=== PATIENT | female | born 1975 | race American Indian/Alaskan Native ===

== ENCOUNTER 2016-09-23 08:49 | Emergency (ER) | payer SELFPAY ==
[2016-09-23] MEDS ORDERED: D5NS 0.2% 1,000 ML IV ONE (08:57)
[2016-09-23 09:35] LABS: Basophils % (Auto) 0.7 % (0.0-1.8); Eosinophils % (Auto) 3.1 % (0.0-4.3); Hematocrit 32.2 % (30.3-42.9); Hemoglobin 10.6 gm/dl (10.1-14.3); Mean Corpuscular HGB Conc 33 % (30-34); Mean Corpuscular Hemoglobin 31 pg (28-32); Mean Corpuscular Volume 93 fl (79-97); Platelet Count 229 K/mm3 (140-440); Red Blood Count 3.45 M/mm3 (3.65-5.03); Red Cell Distribution Width 15.5 % (13.2-15.2); Reticulocyte % 1.34 % (0.78-2.58); White Blood Count 4.5 K/mm3 (4.5-11.0)
[2016-09-23 09:49] LABS: Anion Gap 18 mmol/L; BUN/Creatinine Ratio 8.88; Blood Urea Nitrogen 8 mg/dL (7-17); Calcium 8.5 mg/dL (8.4-10.2); Carbon Dioxide 22 mmol/L (22-30); Chloride 103.3 mmol/L (98-107); Glucose 101 mg/dL (65-100); Potassium 3.7 mmol/L (3.6-5.0); Sodium 140 mmol/L (137-145)
--- NOTE | 2016-09-23 12:34 | Emergency Department Report ---
ED General Adult HPI - General Chief complaint: Chest Pain Stated complaint: SICKLE CELL PAIN/CHEST PAIN/VOMITING/DIZZINESS Time Seen by Provider: 09/23/16 12:28 Source: patient Mode of arrival: Ambulatory Limitations: No Limitations - History of Present Illness Initial comments: The patient presents with symptoms that appear to be totally similar to her presentation here in October when she was admitted to this facility for workup. She describes chest pain which is mostly right sided under her right breast and somewhat radiating around to her back. She had similar symptoms before. She had a negative VQ scan and negative stress thallium. The patient herself states that these symptoms which she is presenting with today are the same as her previous admission. However she thinks that was in 2014. In any case he is not coughing her pain is not pleuritic. She has no shortness of breath. She states that she is taking Coumadin due to pulmonary embolism related to a previous port that has been subsequently removed. She claims that she had an INR last week which was 2.7. She claims that she is compliant with her Coumadin every day. Apparently this history is in accurate. Her INR today is 1.05. In any case in addition to her right-sided chest pain she complains of diffuse pain which she states his similar to her sickle cell pain. She states that she sees a pan dumper at [facility]. She denies leg swelling, calf pain, recent travel and control pills. She's had no recent fever or chills. -: days(s) Location: chest, upper extremity, lower extremity Radiation: non-radiation Quality: aching Consistency: intermittent Improves with: none Worsens with: none Associated Symptoms: denies other symptoms Treatments Prior to Arrival: none - Related Data Home Medications Medication Instructions Recorded Confirmed Last Taken Capecitabine [Xeloda] 500 mg PO BID 11/23/15 09/23/16 Unknown Previous Rx's Medication Instructions Recorded Last Taken Type Ferrous Sulfate [Feosol 325 MG tab] 325 mg PO QDAY #30 tablet 01/18/14 08/25/15 Rx Folic Acid [Folvite] 1 mg PO QDAY #30 tablet 06/19/14 08/25/15 Rx Hydroxyurea [Droxia] 300 mg PO QDAY #30 capsule 06/19/14 08/25/15 Rx Warfarin [Coumadin] 10 mg PO QDAY #30 tablet 06/11/15 08/25/15 Rx levETIRAcetam [Keppra TAB] 1,000 mg PO QDAY 30 Days 06/11/15 08/25/15 Rx Ondansetron [Zofran ODT TAB] 8 mg PO Q8HR PRN #20 tab.rapdis 07/14/15 08/25/15 Rx Enoxaparin [Lovenox] 100 mg SQ Q12HR #14 syringe 11/24/15 Unknown Rx Oxycodone HCl/Acetaminophen 1 each PO Q6HR PRN #12 tablet 11/24/15 Unknown Rx [Percocet 10/325 mg] Promethazine [Phenergan TAB] 25 mg PO Q6HR PRN #20 tab 11/24/15 Unknown Rx Ondansetron [Zofran Odt] 4 mg PO Q6H PRN #7 tab.rapdis 09/23/16 Unknown Rx oxyCODONE /ACETAMINOPHEN [Percocet 1 tab PO Q6HR PRN #10 tablet 09/23/16 Unknown Rx 5/325] Allergies Allergy/AdvReac Type Severity Reaction Status Date / Time aspirin Allergy Rash Verified 03/07/15 09:01 ketorolac tromethamine Allergy Rash Verified 03/07/15 09:01 [From Toradol] morphine Allergy Unknown Verified 03/07/15 09:01 prochlorperazine edisylate Allergy Rash Verified 03/07/15 09:01 [From Compazine] metoclopramide HCl AdvReac AGITATION Verified 03/07/15 09:01 [From Reglan] ED Review of Systems ROS: Stated complaint: SICKLE CELL PAIN/CHEST PAIN/VOMITING/DIZZINESS Other details as noted in HPI Constitutional: denies: chills, fever Eyes: denies: eye pain, eye discharge, vision change ENT: denies: ear pain, throat pain Respiratory: denies: cough, shortness of breath, wheezing Cardiovascular: chest pain. denies: palpitations Endocrine: no symptoms reported Gastrointestinal: denies: abdominal pain, nausea, diarrhea Genitourinary: denies: urgency, dysuria, discharge Musculoskeletal: as per HPI. denies: back pain, joint swelling, arthralgia Skin: denies: rash, lesions Neurological: denies: headache, weakness, paresthesias Psychiatric: denies: anxiety, depression Hematological/Lymphatic: denies: easy bleeding, easy bruising ED Past Medical Hx - Past Medical History Hx Heart Attack/AMI: Yes (2013) Hx Congestive Heart Failure: No Hx Diabetes: No Hx Deep Vein Thrombosis: No Hx Pulmonary Embolism: Yes (currently on Coumadin) Hx Sickle Cell Disease: Yes Hx Seizures: Yes Hx Psychiatric Treatment: Yes (1 prior admission-DEPRESSION) Hx Asthma: No Hx COPD: No Hx HIV: No Additional medical history: Tachycardia. OVARIAN CYST. Anticoagulated due to PE associated with port. - Surgical History Hx Pacemaker: No Hx Internal Defibrillator: No Hx Cholecystectomy: Yes Hx Breast Surgery: Yes (reduction) Additional Surgical History: Tubal LIGATION. ovarian cyst REMOVED. Left ovary removed. Port placement and removal. PICC placement X 2 - Social History Smoking Status: Former Smoker - Medications Home Medications: Home Medications Medication Instructions Recorded Confirmed Last Taken Type Ferrous Sulfate [Feosol 325 MG tab] 325 mg PO QDAY #30 tablet 01/18/14 09/23/16 08/25/15 Rx Folic Acid [Folvite] 1 mg PO QDAY #30 tablet 06/19/14 09/23/16 08/25/15 Rx Hydroxyurea [Droxia] 300 mg PO QDAY #30 capsule 06/19/14 09/23/16 08/25/15 Rx Warfarin [Coumadin] 10 mg PO QDAY #30 tablet 06/11/15 09/23/16 08/25/15 Rx levETIRAcetam [Keppra TAB] 1,000 mg PO QDAY 30 Days 06/11/15 09/23/16 08/25/15 Rx Ondansetron [Zofran ODT TAB] 8 mg PO Q8HR PRN #20 tab.rapdis 07/14/15 09/23/16 08/25/15 Rx Capecitabine [Xeloda] 500 mg PO BID 11/23/15 09/23/16 Unknown History Enoxaparin [Lovenox] 100 mg SQ Q12HR #14 syringe 11/24/15 09/23/16 Unknown Rx Oxycodone HCl/Acetaminophen 1 each PO Q6HR PRN #12 tablet 11/24/15 09/23/16 Unknown Rx [Percocet 10/325 mg] Promethazine [Phenergan TAB] 25 mg PO Q6HR PRN #20 tab 11/24/15 09/23/16 Unknown Rx Ondansetron [Zofran Odt] 4 mg PO Q6H PRN #7 tab.rapdis 09/23/16 Unknown Rx oxyCODONE /ACETAMINOPHEN [Percocet 1 tab PO Q6HR PRN #10 tablet 09/23/16 Unknown Rx 5/325] ED Physical Exam - General Limitations: No Limitations General appearance: alert, in no apparent distress - Head Head exam: Present: atraumatic, normocephalic - Eye Eye exam: Present: normal appearance, PERRL, EOMI. Absent: scleral icterus - ENT ENT exam: Present: mucous membranes moist - Neck Neck exam: Present: normal inspection - Respiratory Respiratory exam: Present: normal lung sounds bilaterally. Absent: respiratory distress - Cardiovascular Cardiovascular Exam: Present: regular rate, normal rhythm. Absent: systolic murmur, diastolic murmur, rubs, gallop - GI/Abdominal GI/Abdominal exam: Present: soft, normal bowel sounds. Absent: distended, tenderness, guarding, rebound, rigid - Extremities Exam Extremities exam: Present: normal inspection, normal capillary refill. Absent: pedal edema, joint swelling, calf tenderness - Back Exam Back exam: Present: normal inspection - Neurological Exam Neurological exam: Present: alert, oriented X3, CN II-XII intact. Absent: motor sensory deficit - Psychiatric Psychiatric exam: Present: normal affect, normal mood - Skin Skin exam: Present: warm, dry, intact, normal color. Absent: rash ED Course Vital Signs 09/23/16 09/23/16 09/23/16 08:54 12:00 12:07 Temperature 99.0 F 98.6 F Pulse Rate 98 H 81 Respiratory 18 14 Rate Blood Pressure 123/73 Blood Pressure 141/47 [Left] O2 Sat by Pulse 97 100 100 Oximetry 09/23/16 09/23/16 09/23/16 12:11 12:21 12:31 Temperature Pulse Rate 83 85 84 Respiratory 16 17 12 Rate Blood Pressure 141/37 141/37 141/37 Blood Pressure [Left] O2 Sat by Pulse 100 100 100 Oximetry 09/23/16 09/23/16 09/23/16 12:41 12:51 13:01 Temperature Pulse Rate 85 80 83 Respiratory 15 13 12 Rate Blood Pressure 141/37 141/37 141/37 Blood Pressure [Left] O2 Sat by Pulse 100 100 100 Oximetry 09/23/16 09/23/16 09/23/16 13:11 13:21 13:31 Temperature Pulse Rate 79 Respiratory 17 Rate Blood Pressure 141/37 141/37 141/37 Blood Pressure [Left] O2 Sat by Pulse 100 100 98 Oximetry 09/23/16 09/23/16 09/23/16 13:41 13:51 14:01 Temperature Pulse Rate Respiratory Rate Blood Pressure 141/37 141/37 141/37 Blood Pressure [Left] O2 Sat by Pulse 100 100 100 Oximetry 09/23/16 09/23/16 09/23/16 14:11 14:21 14:31 Temperature Pulse Rate Respiratory Rate Blood Pressure 141/37 141/37 141/37 Blood Pressure [Left] O2 Sat by Pulse 100 100 100 Oximetry 09/23/16 09/23/16 09/23/16 14:41 14:51 15:01 Temperature Pulse Rate Respiratory Rate Blood Pressure 141/37 141/37 141/37 Blood Pressure [Left] O2 Sat by Pulse 100 100 100 Oximetry 09/23/16 09/23/16 09/23/16 15:11 15:21 15:31 Temperature Pulse Rate Respiratory Rate Blood Pressure 141/37 141/37 141/37 Blood Pressure [Left] O2 Sat by Pulse 100 98 100 Oximetry 09/23/16 09/23/16 09/23/16 15:41 15:51 16:01 Temperature Pulse Rate Respiratory Rate Blood Pressure 141/37 141/37 141/37 Blood Pressure [Left] O2 Sat by Pulse 100 100 99 Oximetry 09/23/16 09/23/16 09/23/16 16:10 16:55 17:01 Temperature Pulse Rate Respiratory Rate Blood Pressure 141/37 141/37 141/37 Blood Pressure [Left] O2 Sat by Pulse 100 89 99 Oximetry - Reevaluation(s) Reevaluation #1: The patient was given analgesia. She really has no intravenous access. I do not feel justified in doing invasive access. Every time I reassessed the patient she was in no distress whatsoever. Her laboratory database does not suggest acute illness. It does not extend suggest compliance with anticoagulation. Patient will be given one shot of Lovenox. She was told that she needs to follow-up with her usual pan dumper and physician managing her anticoagulation. Compliance was stressed. 09/23/16 17:27 09/23/16 17:29 Her INR was 1.35. Her d-dimer was normal. ED Medical Decision Making - Lab Data Result diagrams: 09/23/16 09:09 09/23/16 09:09 Laboratory Results - last 24 hr 09/23/16 09/23/16 09:09 09:09 WBC 4.5 RBC 3.45 L Hgb 10.6 Hct 32.2 MCV 93 MCH 31 MCHC 33 RDW 15.5 H Plt Count 229 Lymph % (Auto) 32.9 Elbert % (Auto) 7.4 H Eos % (Auto) 3.1 Baso % (Auto) 0.7 Lymph # 1.5 Elbert # 0.3 Eos # 0.1 Baso # 0.0 Seg Neutrophils % 55.9 Seg Neutrophils # 2.5 Percent Retic 1.34 Sodium 140 Potassium 3.7 Chloride 103.3 Carbon Dioxide 22 Anion Gap 18 BUN 8 Creatinine 0.9 Estimated GFR > 60 BUN/Creatinine Ratio 8.88 Glucose 101 H Calcium 8.5 Troponin T < 0.010 Laboratory Results - last 24 hr 09/23/16 09/23/16 09/23/16 09:09 09:09 13:57 WBC 4.5 RBC 3.45 L Hgb 10.6 Hct 32.2 MCV 93 MCH 31 MCHC 33 RDW 15.5 H Plt Count 229 Lymph % (Auto) 32.9 Elbert % (Auto) 7.4 H Eos % (Auto) 3.1 Baso % (Auto) 0.7 Lymph # 1.5 Elbert # 0.3 Eos # 0.1 Baso # 0.0 Seg Neutrophils % 55.9 Seg Neutrophils # 2.5 Percent Retic 1.34 PT INR APTT D-Dimer Sodium 140 Potassium 3.7 Chloride 103.3 Carbon Dioxide 22 Anion Gap 18 BUN 8 Creatinine 0.9 Estimated GFR > 60 BUN/Creatinine Ratio 8.88 Glucose 101 H Calcium 8.5 Total Bilirubin Direct Bilirubin Indirect Bilirubin AST ALT Alkaline Phosphatase Total Creatine Kinase CK-MB (CK-2) CK-MB (CK-2) Rel Index Troponin T < 0.010 < 0.010 NT-Pro-B Natriuret Pep Total Protein Albumin Albumin/Globulin Ratio 09/23/16 09/23/16 09/23/16 13:57 13:57 16:04 WBC RBC Hgb Hct MCV MCH MCHC RDW Plt Count Lymph % (Auto) Elbert % (Auto) Eos % (Auto) Baso % (Auto) Lymph # Elbert # Eos # Baso # Seg Neutrophils % Seg Neutrophils # Percent Retic PT INR APTT D-Dimer Sodium Potassium Chloride Carbon Dioxide Anion Gap BUN Creatinine Estimated GFR BUN/Creatinine Ratio Glucose Calcium Total Bilirubin 0.3 Direct Bilirubin < 0.2 Indirect Bilirubin 0.1 AST 19 ALT 17 Alkaline Phosphatase 69 Total Creatine Kinase 252 H CK-MB (CK-2) 1.2 CK-MB (CK-2) Rel Index 0.4 Troponin T < 0.010 NT-Pro-B Natriuret Pep 22.69 Total Protein 7.2 Albumin 3.8 L Albumin/Globulin Ratio 1.1 09/23/16 16:05 WBC RBC Hgb Hct MCV MCH MCHC RDW Plt Count Lymph % (Auto) Elbert % (Auto) Eos % (Auto) Baso % (Auto) Lymph # Elbert # Eos # Baso # Seg Neutrophils % Seg Neutrophils # Percent Retic PT 13.5 INR 1.04 APTT 36.3 D-Dimer 180.43 Sodium Potassium Chloride Carbon Dioxide Anion Gap BUN Creatinine Estimated GFR BUN/Creatinine Ratio Glucose Calcium Total Bilirubin Direct Bilirubin Indirect Bilirubin AST ALT Alkaline Phosphatase Total Creatine Kinase CK-MB (CK-2) CK-MB (CK-2) Rel Index Troponin T NT-Pro-B Natriuret Pep Total Protein Albumin Albumin/Globulin Ratio Critical care attestation.: If time is entered above; I have spent that time in minutes in the direct care of this critically ill patient, excluding procedure time. ED Disposition Clinical Impression: Sickle cell anemia with pain, Medical non-compliance, Atypical chest pain Disposition: DISCHARGED TO HOME OR SELFCARE Is pt being admited?: No Does the pt Need Aspirin: No Condition: Stable Instructions: Chest Pain (ED) Additional Instructions: Follow-up with your usual pan dumper and whoever is managing your anticoagulation. Coumadin as directed. Prescriptions: Ondansetron [Zofran Odt] 4 mg PO Q6H PRN #7 tab.rapdis PRN Reason: nausea oxyCODONE /ACETAMINOPHEN [Percocet 5/325] 1 tab PO Q6HR PRN #10 tablet PRN Reason: Pain Referrals: DR JOHAN [Other] - 2-3 Days Time of Disposition: 17:30
[2016-09-23 14:21] LABS: Creatine Kinase MB 1.2 ng/mL (0.0-4.0)
[2016-09-23 14:42] LABS: Alanine Aminotransferase 17 units/L (7-56); Albumin 3.8 g/dL (3.9-5); Albumin/Globulin Ratio 1.1 %; Alkaline Phosphatase 69 units/L (35-129); Bilirubin,Total 0.3 mg/dL (0.1-1.2); Total Protein 7.2 g/dL (6.3-8.2)
[2016-09-23 14:46] LABS: Bilirubin,Direct < 0.2 mg/dL (0-0.2)
[2016-09-23] MEDS ORDERED: DILAUDID IM ONE (14:50)
[2016-09-23] MEDS ORDERED: BENADRYL PO ONE (14:51)
[2016-09-23] MEDS ORDERED: ZOFRAN ODT PO ONE (14:51)
[2016-09-23 15:17] LABS: Bilirubin,Indirect 0.1 mg/dL
[2016-09-23 16:21] LABS: INR 1.04 (0.87-1.13)
[2016-09-23 16:22] LABS: Partial Thromboplastin Time 36.3 Sec. (24.2-36.6)
[2016-09-23 16:41] VITALS: BP 141/37
[2016-09-23 17:14] LABS: Urine Drugs of Abuse Note Disclamer
[2016-09-23] MEDS ORDERED: LOVENOX SUB-Q ONE (17:33)
[2016-09-23 17:36] LABS: Bacteria,Urine 1+ /HPF (Negative); Bilirubin,Urine NEG (Negative); Blood,Urine LG (Negative); Ketones,Urine NEG (Negative); Leukocyte Esterase,Urine LG (Negative); Mucus,Urine FEW /HPF; Nitrite,Urine NEG (Negative); Protein,Urine <15 mg/dL mg/dL (Negative); Urobilinogen,Urine < 2.0 mg/dL (<2.0)
[2016-09-23] MEDS ORDERED: PERCOCET 5/325 PO ONE (18:16)
== END 2016-09-23 18:45 | disposition home or self-care (01) ==
LOC: ED 08:49
DX: D57.1 Sickle-cell disease without crisis (principal); Z91.14 Patient's other noncompliance with medication regimen; R07.89 Other chest pain; I25.2 Old myocardial infarction; Z87.891 Personal history of nicotine dependence
CPT/HCPCS: 36415; 80048; 80074; 80307; 81001; 81025; 82550; 82553; 83880; 84484; 85025; 85045; 85379; 85610; 85730; 93005; 93010; 96372; 99284; J1170; J1650; Q0162

== ENCOUNTER 2016-11-29 00:16 | Emergency (ER) | payer SELFPAY ==
[2016-11-29 02:24] LABS: Basophils % (Auto) 1.1 % (0.0-1.8); Eosinophils % (Auto) 3.1 % (0.0-4.3); Hematocrit 37.7 % (30.3-42.9); Hemoglobin 12.4 gm/dl (10.1-14.3); Mean Corpuscular HGB Conc 33 % (30-34); Mean Corpuscular Hemoglobin 29 pg (28-32); Mean Corpuscular Volume 90 fl (79-97); Platelet Count 232 K/mm3 (140-440); Red Blood Count 4.22 M/mm3 (3.65-5.03); Red Cell Distribution Width 17.4 % (13.2-15.2); Reticulocyte % 1.32 % (0.78-2.58); White Blood Count 5.2 K/mm3 (4.5-11.0)
[2016-11-29 02:33] LABS: Creatine Kinase MB 1.1 ng/mL (0.0-4.0)
[2016-11-29 02:35] LABS: Alanine Aminotransferase 19 units/L (7-56); Albumin 4.1 g/dL (3.9-5); Albumin/Globulin Ratio 1.2 %; Alkaline Phosphatase 87 units/L (35-129); Anion Gap 21 mmol/L; BUN/Creatinine Ratio 11.25; Bilirubin,Total 0.2 mg/dL (0.1-1.2); Blood Urea Nitrogen 9 mg/dL (7-17); Calcium 8.8 mg/dL (8.4-10.2); Carbon Dioxide 23 mmol/L (22-30); Creatine Kinase 217 units/L (30-135); Glucose 87 mg/dL (65-100); Potassium 3.6 mmol/L (3.6-5.0); Sodium 145 mmol/L (137-145); Total Protein 7.6 g/dL (6.3-8.2)
[2016-11-29 04:18] LABS: INR 1.17 (0.87-1.13)
[2016-11-29 04:19] LABS: Partial Thromboplastin Time 40.5 Sec. (24.2-36.6)
[2016-11-29] MEDS ORDERED: ZOFRAN IV ONE (06:52)
[2016-11-29] MEDS ORDERED: NACL 0.9% 1000 ML 1,000 ML IV ONE (06:52)
[2016-11-29] MEDS ORDERED: DILAUDID IV ONE ×3 (06:52→10:27)
[2016-11-29] MEDS ORDERED: LOVENOX SUB-Q ONE (06:54)
[2016-11-29] MEDS ORDERED: BENADRYL IV ONE ×2 (06:55→09:36)
--- NOTE | 2016-11-29 07:13 | Emergency Department Report ---
ED General Adult HPI - General Chief complaint: Chest Pain Stated complaint: SICKLE CELL PAIN/CHEST PAIN/EMESIS Time Seen by Provider: 11/29/16 06:14 Source: patient, old records reviewed (admitted November 22 2016 and had chest pain evaluation and negative stress test) Mode of arrival: Ambulatory Limitations: No Limitations - History of Present Illness Initial comments: 41-year-old female with a past medical history of sickle cell SC, previous PE ( on Coumadin and IVC filter), previous CT with stent (negative exercise stress test here 11/24/2015), ovarian cancer, seizures and previous cholecystectomy and tubal ligation presents to the hospital complaints of chest pain,abdominal pain and possible sickle cell crisis. Complaint #1: Chest pain Patient has had left-sided chest pain on the breasts and mid chest pain at sternum 1 day. Pain is constant, aching and sharp. Worse with inspiration and palpation. No specific alleviating factors. Patient denies associated shortness of breath or diaphoresis. She's been compliant with her Coumadin however, per medical record review. She is often subtherapeutic. Previous PE x2 secondary to leg DVT and secondary to chest port removal. Patient does report That this was different than her previous CT pain which was primarily significant shortness of breath Complaint #2: Abdominal pain For the past 5 days patient has had right upper quadrant abdominal pain associated nausea, vomiting, and poor by mouth tolerance. Patient has had very little to eat or drink the last couple days. No reports of fever, dysuria, melena, hematochezia, diarrhea. Complaint #3: Bilateral leg pain. Patient complain of pain to her leg joints which she thinks is secondary to sickle cell. Pain rated 8/10 in intensity, constant, without aggravating or alleviating factors. No reports of swelling or leg asymmetry. Patient's gold prospector is Dr. Diego (sp ?) at [facility]. Patient's supervising chef is also [facility] affiliated Severity scale (0 -10): 7 - Related Data Home Medications Medication Instructions Recorded Confirmed Last Taken Capecitabine [Xeloda] 500 mg PO BID 11/23/15 09/23/16 Unknown Previous Rx's Medication Instructions Recorded Last Taken Type Ferrous Sulfate [Feosol 325 MG tab] 325 mg PO QDAY #30 tablet 01/18/14 08/25/15 Rx Folic Acid [Folvite] 1 mg PO QDAY #30 tablet 06/19/14 08/25/15 Rx Hydroxyurea [Droxia] 300 mg PO QDAY #30 capsule 06/19/14 08/25/15 Rx Warfarin [Coumadin] 10 mg PO QDAY #30 tablet 06/11/15 08/25/15 Rx levETIRAcetam [Keppra TAB] 1,000 mg PO QDAY 30 Days 06/11/15 08/25/15 Rx Ondansetron [Zofran ODT TAB] 8 mg PO Q8HR PRN #20 tab.rapdis 07/14/15 08/25/15 Rx Enoxaparin [Lovenox] 100 mg SQ Q12HR #14 syringe 11/24/15 Unknown Rx Oxycodone HCl/Acetaminophen 1 each PO Q6HR PRN #12 tablet 11/24/15 Unknown Rx [Percocet 10/325 mg] Promethazine [Phenergan TAB] 25 mg PO Q6HR PRN #20 tab 11/24/15 Unknown Rx Ondansetron [Zofran Odt] 4 mg PO Q6H PRN #7 tab.rapdis 09/23/16 Unknown Rx oxyCODONE /ACETAMINOPHEN [Percocet 1 tab PO Q6HR PRN #10 tablet 09/23/16 Unknown Rx 5/325] Nitrofurantoin [place]/M-Cryst 100 mg PO Q12HR #10 capsule 11/29/16 Unknown Rx [Macrobid CAP] Oxycodone HCl [Oxycodone HCl ER] 30 mg PO BID #14 tab.er.12h 11/29/16 Unknown Rx Promethazine [Phenergan] 25 mg MI Q6HR PRN #20 supp.rect 11/29/16 Unknown Rx Allergies Allergy/AdvReac Type Severity Reaction Status Date / Time aspirin Allergy Rash Verified 03/07/15 09:01 ketorolac tromethamine Allergy Rash Verified 03/07/15 09:01 [From Toradol] morphine Allergy Unknown Verified 03/07/15 09:01 prochlorperazine edisylate Allergy Rash Verified 03/07/15 09:01 [From Compazine] metoclopramide HCl AdvReac AGITATION Verified 03/07/15 09:01 [From Reglan] ED Review of Systems ROS: Stated complaint: SICKLE CELL PAIN/CHEST PAIN/EMESIS Other details as noted in HPI Comment: All other systems reviewed and negative Other: Constitutional: No fevers chills Eyes: No eye pain visual changes ENT: No ear pain or throat pain Neck: Denies pain Respiratory: Denies cough wheezing shortness of breath Cardiovascular: As per HPI GI: As per HPI : Denies dysuria Musculoskeletal: Denies back pain, joint swelling Skin: Denies rash, lesions, erythema Neurologic: Denies headache, numbness, weakness Psychiatric: Denies suicidal ideation, hallucinations ED Past Medical Hx - Past Medical History Previous Medical History?: Yes Hx Heart Attack/AMI: Yes (2013) Hx Congestive Heart Failure: No Hx Diabetes: No Hx Deep Vein Thrombosis: No Hx Pulmonary Embolism: Yes (currently on Coumadin) Hx of Cancer: Yes (ovarian) Hx Sickle Cell Disease: Yes Hx Seizures: Yes Hx Psychiatric Treatment: Yes (1 prior admission-DEPRESSION) Hx Asthma: No Hx COPD: No Hx HIV: No Additional medical history: Tachycardia. OVARIAN CYST. Anticoagulated due to PE associated with port. - Surgical History Past Surgical History?: Yes Hx Pacemaker: No Hx Internal Defibrillator: No Hx Cholecystectomy: Yes Hx Breast Surgery: Yes (reduction) Additional Surgical History: Tubal LIGATION. ovarian cyst REMOVED. Left ovary removed, Took chemo for ovarian cancer via port placed in chest, two years back. Port placement and removal. PICC placement X 2. Stents in heart , last year, Cholecystectomy 4 years back, Breast reduction, 2 years back - Social History Smoking Status: Never Smoker Substance Use Type: None - Medications Home Medications: Home Medications Medication Instructions Recorded Confirmed Last Taken Type Ferrous Sulfate [Feosol 325 MG tab] 325 mg PO QDAY #30 tablet 01/18/14 09/23/16 08/25/15 Rx Folic Acid [Folvite] 1 mg PO QDAY #30 tablet 06/19/14 09/23/16 08/25/15 Rx Hydroxyurea [Droxia] 300 mg PO QDAY #30 capsule 06/19/14 09/23/16 08/25/15 Rx Warfarin [Coumadin] 10 mg PO QDAY #30 tablet 06/11/15 09/23/16 08/25/15 Rx levETIRAcetam [Keppra TAB] 1,000 mg PO QDAY 30 Days 10/22/15 02/03/17 01/05/16 Rx Ondansetron [Zofran ODT TAB] 8 mg PO Q8HR PRN #20 tab.rapdis 07/14/15 09/23/16 08/25/15 Rx Capecitabine [Xeloda] 500 mg PO BID 11/23/15 09/23/16 Unknown History Enoxaparin [Lovenox] 100 mg SQ Q12HR #14 syringe 11/24/15 09/23/16 Unknown Rx Oxycodone HCl/Acetaminophen 1 each PO Q6HR PRN #12 tablet 11/24/15 09/23/16 Unknown Rx [Percocet 10/325 mg] Promethazine [Phenergan TAB] 25 mg PO Q6HR PRN #20 tab 11/24/15 09/23/16 Unknown Rx Ondansetron [Zofran Odt] 4 mg PO Q6H PRN #7 tab.rapdis 09/23/16 Unknown Rx oxyCODONE /ACETAMINOPHEN [Percocet 1 tab PO Q6HR PRN #10 tablet 09/23/16 Unknown Rx 5/325] Nitrofurantoin [place]/M-Cryst 100 mg PO Q12HR #10 capsule 11/29/16 Unknown Rx [Macrobid CAP] Oxycodone HCl [Oxycodone HCl ER] 30 mg PO BID #14 tab.er.12h 11/29/16 Unknown Rx Promethazine [Phenergan] 25 mg MI Q6HR PRN #20 supp.rect 11/29/16 Unknown Rx ED Physical Exam - General Limitations: No Limitations - Other Other exam information: General: No limitations, patient is alert in no acute distress Head exam: Atraumatic, normocephalic Eyes exam: Normal appearance ENT: Moist mucous membrane, normal oropharynx Neck exam: Normal inspection, full range of motion Respiratory exam: Clear to auscultation bilateral, no wheezes, rales, crackles Cardiovascular: Normal rate and rhythm, normal heart sounds. Reproducible pain at the xiphoid process on palpation Abdomen: Soft, nondistended, right upper quadrant tenderness mild epigastric tenderness, with normal bowel sounds, no rebound, or guarding Extremity: Full range of motion normal inspection no deformity Back: Normal Inspection, full range of motion, no tenderness Neurologic: Alert, oriented x3, cranial nerves intact, no motor or sensory deficit Psychiatric: normal affect, normal mood Skin: Warm, dry, intact ED Course Vital Signs 11/29/16 11/29/16 11/29/16 00:28 05:17 05:20 Temperature 98.9 F Pulse Rate 74 73 Respiratory 18 12 18 Rate Blood Pressure 128/86 Blood Pressure 114/71 [Left] O2 Sat by Pulse 98 100 Oximetry 11/29/16 11/29/16 11/29/16 05:30 06:00 07:21 Temperature 98.1 F Pulse Rate 73 78 82 Respiratory 27 H 17 16 Rate Blood Pressure 120/91 125/77 Blood Pressure 144/77 [Left] O2 Sat by Pulse 100 99 99 Oximetry 11/29/16 09:54 Temperature Pulse Rate 83 Respiratory 16 Rate Blood Pressure Blood Pressure 134/78 [Left] O2 Sat by Pulse 99 Oximetry - Reevaluation(s) Reevaluation #1: 11/29/16 07:16 Dilaudid, Zofran, Benadryl ordered as well as Lovenox and Pepcid ED Medical Decision Making - Lab Data Result diagrams: 11/29/16 02:01 11/29/16 02:01 Lab Results 11/29/16 11/29/16 11/29/16 Range/Units 02:01 02:01 02:01 WBC 5.2 (4.5-11.0) K/mm3 RBC 4.22 (3.65-5.03) M/mm3 Hgb 12.4 (10.1-14.3) gm/dl Hct 37.7 (30.3-42.9) % MCV 90 (79-97) fl MCH 29 (28-32) pg MCHC 33 (30-34) % RDW 17.4 H (13.2-15.2) % Plt Count 232 (140-440) K/mm3 Lymph % (Auto) 35.8 H (13.4-35.0) % [place] % (Auto) 9.3 H (0.0-7.3) % Eos % (Auto) 3.1 (0.0-4.3) % Baso % (Auto) 1.1 (0.0-1.8) % Lymph # 1.9 (1.2-5.4) K/mm3 [place] # 0.5 (0.0-0.8) K/mm3 Eos # 0.2 (0.0-0.4) K/mm3 Baso # 0.1 (0.0-0.1) K/mm3 Seg Neutrophils % 50.7 (40.0-70.0) % Seg Neutrophils # 2.6 (1.8-7.7) K/mm3 Percent Retic 1.32 (0.78-2.58) % PT 14.8 (12.2-14.9) Sec. INR 1.17 H (0.87-1.13) APTT 40.5 H (24.2-36.6) Sec. D-Dimer 171.43 (0-234) ng/mlDDU Sodium 145 (137-145) mmol/L Potassium 3.6 (3.6-5.0) mmol/L Chloride 105.0 (98-107) mmol/L Carbon Dioxide 23 (22-30) mmol/L Anion Gap 21 mmol/L BUN 9 (7-17) mg/dL Creatinine 0.8 (0.7-1.2) mg/dL Estimated GFR > 60 ml/min BUN/Creatinine Ratio 11.25 % Glucose 87 (65-100) mg/dL Calcium 8.8 (8.4-10.2) mg/dL Total Bilirubin 0.2 (0.1-1.2) mg/dL AST 16 (5-40) units/L ALT 19 (7-56) units/L Alkaline Phosphatase 87 (35-129) units/L Total Creatine Kinase 217 H (30-135) units/L CK-MB (CK-2) 1.1 (0.0-4.0) ng/mL CK-MB (CK-2) Rel Index 0.5 (0-4) Troponin T < 0.010 (0.00-0.029) ng/mL Total Protein 7.6 (6.3-8.2) g/dL Albumin 4.1 (3.9-5) g/dL Albumin/Globulin Ratio 1.2 % Lipase (13-60) units/L Urine Color (Yellow) Urine Turbidity (Clear) Urine pH (5.0-7.0) Ur Specific [place] (1.003-1.030) Urine Protein (Negative) mg/dL Urine Glucose (UA) (Negative) mg/dL Urine Ketones (Negative) mg/dL Urine Blood (Negative) Urine Nitrite (Negative) Urine Bilirubin (Negative) Urine Urobilinogen (<2.0) mg/dL Ur Leukocyte Esterase (Negative) Urine WBC (Auto) (0.0-6.0) /HPF Urine RBC (Auto) (0.0-6.0) /HPF U Epithel Cells (Auto) (0-13.0) /HPF Urine Bacteria (Auto) (Negative) /HPF Urine HCG, Qual (Negative) 11/29/16 11/29/16 11/29/16 Range/Units 02:01 07:08 07:08 WBC (4.5-11.0) K/mm3 RBC (3.65-5.03) M/mm3 Hgb (10.1-14.3) gm/dl Hct (30.3-42.9) % MCV (79-97) fl MCH (28-32) pg MCHC (30-34) % RDW (13.2-15.2) % Plt Count (140-440) K/mm3 Lymph % (Auto) (13.4-35.0) % [place] % (Auto) (0.0-7.3) % Eos % (Auto) (0.0-4.3) % Baso % (Auto) (0.0-1.8) % Lymph # (1.2-5.4) K/mm3 [place] # (0.0-0.8) K/mm3 Eos # (0.0-0.4) K/mm3 Baso # (0.0-0.1) K/mm3 Seg Neutrophils % (40.0-70.0) % Seg Neutrophils # (1.8-7.7) K/mm3 Percent Retic (0.78-2.58) % PT (12.2-14.9) Sec. INR (0.87-1.13) APTT (24.2-36.6) Sec. D-Dimer (0-234) ng/mlDDU Sodium (137-145) mmol/L Potassium (3.6-5.0) mmol/L Chloride (98-107) mmol/L Carbon Dioxide (22-30) mmol/L Anion Gap mmol/L BUN (7-17) mg/dL Creatinine (0.7-1.2) mg/dL Estimated GFR ml/min BUN/Creatinine Ratio % Glucose (65-100) mg/dL Calcium (8.4-10.2) mg/dL Total Bilirubin (0.1-1.2) mg/dL AST (5-40) units/L ALT (7-56) units/L Alkaline Phosphatase (35-129) units/L Total Creatine Kinase (30-135) units/L CK-MB (CK-2) (0.0-4.0) ng/mL CK-MB (CK-2) Rel Index (0-4) Troponin T (0.00-0.029) ng/mL Total Protein (6.3-8.2) g/dL Albumin (3.9-5) g/dL Albumin/Globulin Ratio % Lipase 80 H (13-60) units/L Urine Color Straw (Yellow) Urine Turbidity Slightly-cloudy (Clear) Urine pH 6.0 (5.0-7.0) Ur Specific [place] 1.005 (1.003-1.030) Urine Protein <15 mg/dl (Negative) mg/dL Urine Glucose (UA) Neg (Negative) mg/dL Urine Ketones Neg (Negative) mg/dL Urine Blood Sm (Negative) Urine Nitrite Neg (Negative) Urine Bilirubin Neg (Negative) Urine Urobilinogen < 2.0 (<2.0) mg/dL Ur Leukocyte Esterase Lg (Negative) Urine WBC (Auto) 12.0 H (0.0-6.0) /HPF Urine RBC (Auto) 6.0 (0.0-6.0) /HPF U Epithel Cells (Auto) 9.0 (0-13.0) /HPF Urine Bacteria (Auto) 1+ (Negative) /HPF Urine HCG, Qual Negative (Negative) - EKG Data -: EKG Interpreted by Me (sinus rhythm rate 82) - Radiology Data Radiology results: report reviewed Chest x-ray: No acute findings CT abdomen and pelvis noncontrast: No acute findings - Medical Decision Making Patient's pain improved multiple doses Dilaudid in the ED. Patient chronically takes oxycodone 30 mg at home for pain and does not currently have any medications. She is requesting a refill. She'll be treated for UTI with Macrobid given her urinary leukocytosis. She'll be given medications for pain and nausea. She was encouraged to follow-up with her gold prospector in regards to chronically subtherapeutic INR despite taking her Coumadin dosing. She did receive 1 dose of Lovenox in the ED - Differential Diagnosis costochondritis, gastritis, pancreatitis, hepatitis, sickle cell crisis, Critical Care Time: No Critical care attestation.: If time is entered above; I have spent that time in minutes in the direct care of this critically ill patient, excluding procedure time. ED Disposition Clinical Impression: Costochondritis, acute, Sickle cell anemia with pain, Abdominal pain, Nausea and vomiting, Subtherapeutic international normalized ratio (INR), UTI (urinary tract infection) Disposition: DISCHARGED TO HOME OR SELFCARE Is pt being admited?: No Does the pt Need Aspirin: No Condition: Stable Instructions: Costochondritis (ED), Sickle Cell Crisis (ED), Abdominal Pain (ED ), Warfarin (By mouth), Urinary Tract Infection in Women (ED) Additional Instructions: Your INR today is 1.17 the level should be between 2 and 3. You need to have your recurrent Coumadin dose adjusted by your gold prospector. Take medications as prescribed and follow up with your doctor for additional narcotic medication prescriptions. Prescriptions: Nitrofurantoin [place]/M-Cryst [Macrobid CAP] 100 mg PO Q12HR #10 capsule Oxycodone HCl [Oxycodone HCl ER] 30 mg PO BID #14 tab.er.12h Promethazine [Phenergan] 25 mg MI Q6HR PRN #20 supp.rect PRN Reason: Nausea And Vomiting Referrals: PRIMARY CARE,MD [Primary Care Provider] - 3-5 Days your, gold prospector [Other] - 2-3 Days Time of Disposition: 10:46
[2016-11-29] MEDS ORDERED: PEPCID IV ONE (07:17)
[2016-11-29 07:36] LABS: Bacteria,Urine 1+ /HPF (Negative); Bilirubin,Urine NEG (Negative); Blood,Urine SM (Negative); Ketones,Urine NEG (Negative); Leukocyte Esterase,Urine LG (Negative); Nitrite,Urine NEG (Negative); Protein,Urine <15 mg/dL mg/dL (Negative); Urobilinogen,Urine < 2.0 mg/dL (<2.0)
--- NOTE | 2016-11-29 08:00 | XRay Report ---
ROUTINE CHEST, TWO VIEWS: HISTORY: chest pain. The trachea, heart, mediastinal contour, lung collazo and bony thorax are unremarkable. No change since 11/23/15. IMPRESSION: Unremarkable chest x-ray.
--- NOTE | 2016-11-29 09:39 | Cat Scan Report ---
CT OF THE ABDOMEN AND PELVIS WITHOUT CONTRAST HISTORY: Right upper quadrant abdominal pain, nausea and vomiting, cholecystectomy. TECHNIQUE: Helical CT without contrast. Sagittal and coronal reformatted images. FINDINGS: Within the limits of a noncontrast exam, the abdominal and pelvic viscera are within normal limits. The liver, biliary system, pancreas, spleen, kidneys, adrenal glands and bladder are unremarkable. Cholecystectomy changes are noted. The bowel loops are normal caliber and wall thickness. Normal appendix. The aorta is normal caliber. No ascites, bulky adenopathy or inflammatory changes. An IVC filter is in place. The uterus and adnexa are within normal limits. IUD is noted. The previously described subcutaneous nodule or fluid collection in the anterior abdominal wall has resolved since 11/23/15. The lung bases are clear. Normal heart size. No suspicious bony lesion. IMPRESSION: No acute abdominal process identified.
[2016-11-29 09:54] VITALS: BP 134/78
[2016-11-29] MEDS ORDERED: MACROBID PO ONE (10:27)
== END 2016-11-29 11:02 | disposition home or self-care (01) ==
LOC: ED 00:16
DX: M94.0 Chondrocostal junction syndrome [Tietze] (principal); D57.00 Hb-SS disease with crisis, unspecified; R10.11 Right upper quadrant pain; R11.2 Nausea with vomiting, unspecified; N39.0 Urinary tract infection, site not specified; R79.1 Abnormal coagulation profile; I25.2 Old myocardial infarction; I26.99 Other pulmonary embolism without acute cor pulmonale; C56.9 Malignant neoplasm of unspecified ovary; Z98.51 Tubal ligation status; Z88.6 Allergy status to analgesic agent; Z88.8 Allergy status to other drugs, medicaments and biological substances
CPT/HCPCS: 36415; 71020; 74176; 80053; 81001; 81025; 82550; 82553; 83690; 84484; 85025; 85045; 85379; 85610; 85730; 93005; 93010; 96361; 96372; 96374; 96375; 96376; 99285; J1170; J1200; J1650; J2405; J7030

== ENCOUNTER 2017-02-22 18:57 | Emergency (ER) | payer SELFPAY ==
[2017-02-22 20:42] LABS: Anion Gap 17 mmol/L; BUN/Creatinine Ratio 12.22; Blood Urea Nitrogen 11 mg/dL (7-17); Calcium 8.9 mg/dL (8.4-10.2); Carbon Dioxide 26 mmol/L (22-30); Chloride 106.8 mmol/L (98-107); Glucose 85 mg/dL (65-100); Sodium 146 mmol/L (137-145)
[2017-02-22 20:59] LABS: Basophils % (Auto) 0.5 % (0.0-1.8); Eosinophils % (Auto) 2.4 % (0.0-4.3); Hematocrit 32.6 % (30.3-42.9); Hemoglobin 10.5 gm/dl (10.1-14.3); Mean Corpuscular HGB Conc 32 % (30-34); Mean Corpuscular Hemoglobin 31 pg (28-32); Mean Corpuscular Volume 95 fl (79-97); Platelet Count 282 K/mm3 (140-440); Red Blood Count 3.44 M/mm3 (3.65-5.03); Red Cell Distribution Width 17.8 % (13.2-15.2); Reticulocyte % 2.57 % (0.78-2.58)
[2017-02-22 21:09] LABS: Partial Thromboplastin Time 33.8 Sec. (24.2-36.6)
[2017-02-23] MEDS ORDERED: NACL 0.9% 1000 ML 2,000 ML IV ONE (03:34)
[2017-02-23] MEDS ORDERED: DILAUDID IV ONE (03:34)
[2017-02-23] MEDS ORDERED: ZOFRAN IV ONE (03:34)
--- NOTE | 2017-02-23 03:37 | Emergency Department Report ---
ED Chest Pain HPI - General Chief Complaint: Chest Pain Stated Complaint: SICKLE CELL PAIN,CHEST PAIN Time Seen by Provider: 02/23/17 03:13 Source: patient Mode of arrival: Ambulatory Limitations: No Limitations - History of Present Illness Initial Comments: Patient is a 41-year-old female here with complaint of chest pain, abdominal pain, nausea vomiting last 4 days. She has a known history of PE and sickle cell. She denies fevers chills and does not believe this is acute chest. MD Complaint: chest pain -: days(s) Onset: during rest, during exertion Pain Location: substernal Pain Radiation: none Severity: mild Severity scale (0 -10): 8 Quality: tightness, aching Consistency: constant Improves With: nothing re: nausea, vomting Treatments Prior to Arrival: none - Related Data Home Medications Medication Instructions Recorded Confirmed Last Taken Capecitabine [Xeloda] 500 mg PO BID 11/23/15 09/23/16 Unknown Previous Rx's Medication Instructions Recorded Last Taken Type Ferrous Sulfate [Feosol 325 MG tab] 325 mg PO QDAY #30 tablet 01/18/14 08/25/15 Rx Folic Acid [Folvite] 1 mg PO QDAY #30 tablet 06/19/14 08/25/15 Rx Hydroxyurea [Droxia] 300 mg PO QDAY #30 capsule 06/19/14 08/25/15 Rx Warfarin [Coumadin] 10 mg PO QDAY #30 tablet 06/11/15 08/25/15 Rx levETIRAcetam [Keppra TAB] 1,000 mg PO QDAY 30 Days 06/11/15 08/25/15 Rx Ondansetron [Zofran ODT TAB] 8 mg PO Q8HR PRN #20 tab.rapdis 07/14/15 08/25/15 Rx Enoxaparin [Lovenox] 100 mg SQ Q12HR #14 syringe 11/24/15 Unknown Rx Ondansetron [Zofran Odt] 4 mg PO Q6H PRN #7 tab.rapdis 09/23/16 Unknown Rx oxyCODONE /ACETAMINOPHEN [Percocet 1 tab PO Q6HR PRN #10 tablet 09/23/16 Unknown Rx 5/325] Nitrofurantoin [place]/M-Cryst 100 mg PO Q12HR #10 capsule 11/29/16 Unknown Rx [Macrobid CAP] Oxycodone HCl [Oxycodone HCl ER] 30 mg PO BID #14 tab.er.12h 11/29/16 Unknown Rx Promethazine [Phenergan] 25 mg [place] Q6HR PRN #20 supp.rect 11/29/16 Unknown Rx Oxycodone HCl/Acetaminophen 1 each PO Q6HR PRN #12 tablet 02/23/17 Unknown Rx [Percocet 10/325 mg] Allergies Allergy/AdvReac Type Severity Reaction Status Date / Time aspirin Allergy Rash Verified 03/07/15 09:01 ketorolac tromethamine Allergy Rash Verified 03/07/15 09:01 [From Toradol] morphine Allergy Unknown Verified 03/07/15 09:01 prochlorperazine edisylate Allergy Rash Verified 03/07/15 09:01 [From Compazine] metoclopramide HCl AdvReac AGITATION Verified 03/07/15 09:01 [From Reglan] Heart Score - HEART Score History: Slightly suspicious EKG: Normal Age: < 45 Risk factors: 1-2 risk factors Troponin: < normal limit HEART Score: 1 - Critical Actions Critical Actions: 0-3 pts:0.9-1.7%risk of adverse cardiac event.Candidate for discharge ED Review of Systems ROS: Stated complaint: SICKLE CELL PAIN,CHEST PAIN Other details as noted in HPI Comment: All other systems reviewed and negative Constitutional: denies: chills, fever Eyes: denies: eye pain, eye discharge, vision change ENT: denies: ear pain, throat pain Respiratory: denies: cough, shortness of breath, wheezing Cardiovascular: chest pain. denies: palpitations Endocrine: no symptoms reported Gastrointestinal: nausea, vomiting. denies: abdominal pain, diarrhea Genitourinary: denies: urgency, dysuria, discharge Musculoskeletal: arthralgia. denies: back pain, joint swelling Skin: denies: rash, lesions Neurological: headache. denies: weakness, paresthesias Psychiatric: denies: anxiety, depression Hematological/Lymphatic: denies: easy bleeding, easy bruising ED Past Medical Hx - Past Medical History Previous Medical History?: Yes Hx Heart Attack/AMI: Yes (2013) Hx Congestive Heart Failure: No Hx Diabetes: No Hx Deep Vein Thrombosis: No Hx Pulmonary Embolism: Yes (currently on Coumadin) Hx Sickle Cell Disease: Yes Hx Seizures: Yes Hx Psychiatric Treatment: Yes (1 prior admission-DEPRESSION) Hx Asthma: No Hx COPD: No Hx HIV: No Additional medical history: Tachycardia. OVARIAN CYST. Anticoagulated due to PE associated with port. - Surgical History Past Surgical History?: Yes Hx Pacemaker: No Hx Internal Defibrillator: No Hx Cholecystectomy: Yes Hx Breast Surgery: Yes (reduction) Additional Surgical History: Tubal LIGATION. ovarian cyst REMOVED. Left ovary removed, Took chemo for ovarian cancer via port placed in chest, two years back. Port placement and removal. PICC placement X 2. Stents in heart , last year, Cholecystectomy 4 years back, Breast reduction, 2 years back - Social History Smoking Status: Never Smoker Substance Use Type: None - Medications Home Medications: Home Medications Medication Instructions Recorded Confirmed Last Taken Type Ferrous Sulfate [Feosol 325 MG tab] 325 mg PO QDAY #30 tablet 01/18/14 09/23/16 08/25/15 Rx Folic Acid [Folvite] 1 mg PO QDAY #30 tablet 06/19/14 09/23/16 08/25/15 Rx Hydroxyurea [Droxia] 300 mg PO QDAY #30 capsule 06/19/14 09/23/16 08/25/15 Rx Warfarin [Coumadin] 10 mg PO QDAY #30 tablet 06/11/15 09/23/16 08/25/15 Rx levETIRAcetam [Keppra TAB] 1,000 mg PO QDAY 30 Days 06/11/15 09/23/16 08/25/15 Rx Ondansetron [Zofran ODT TAB] 8 mg PO Q8HR PRN #20 tab.rapdis 07/14/15 09/23/16 08/25/15 Rx Capecitabine [Xeloda] 500 mg PO BID 11/23/15 09/23/16 Unknown History Enoxaparin [Lovenox] 100 mg SQ Q12HR #14 syringe 11/24/15 09/23/16 Unknown Rx Ondansetron [Zofran Odt] 4 mg PO Q6H PRN #7 tab.rapdis 09/23/16 Unknown Rx oxyCODONE /ACETAMINOPHEN [Percocet 1 tab PO Q6HR PRN #10 tablet 09/23/16 Unknown Rx 5/325] Nitrofurantoin [place]/M-Cryst 100 mg PO Q12HR #10 capsule 11/29/16 Unknown Rx [Macrobid CAP] Oxycodone HCl [Oxycodone HCl ER] 30 mg PO BID #14 tab.er.12h 11/29/16 Unknown Rx Promethazine [Phenergan] 25 mg [place] Q6HR PRN #20 supp.rect 11/29/16 Unknown Rx Oxycodone HCl/Acetaminophen 1 each PO Q6HR PRN #12 tablet 02/23/17 Unknown Rx [Percocet 10/325 mg] ED Physical Exam - General Limitations: No Limitations General appearance: alert, in no apparent distress, other (morbid obesity) - Head Head exam: Present: atraumatic, normocephalic - Eye Eye exam: Present: normal appearance - ENT ENT exam: Present: mucous membranes dry - Neck Neck exam: Present: normal inspection - Respiratory Respiratory exam: Present: normal lung sounds bilaterally. Absent: respiratory distress - Cardiovascular Cardiovascular Exam: Present: regular rate, normal rhythm. Absent: systolic murmur, diastolic murmur, rubs, gallop - GI/Abdominal GI/Abdominal exam: Present: soft, normal bowel sounds - Extremities Exam Extremities exam: Present: normal inspection - Back Exam Back exam: Present: normal inspection - Neurological Exam Neurological exam: Present: alert, oriented X3 - Psychiatric Psychiatric exam: Present: normal affect, normal mood - Skin Skin exam: Present: warm, dry, intact, normal color. Absent: rash ED Course Vital Signs 02/22/17 02/23/17 19:29 01:25 Temperature 99.5 F Pulse Rate 91 H 88 Respiratory 18 Rate Blood Pressure 130/78 147/84 O2 Sat by Pulse 97 98 Oximetry GINGER score - Ginger Score Age > 65: (0) No Aspirin use within the Past 7 Days: (0) No 3 or more CAD Risk Factors: (0) No 2 or more Angina events in past 24 hrs: (0) No Known CAD with more than 50% Stenosis: (0) No Elevated Cardiac Markers: (0) No ST Deviation Greater than 0.5mm: (0) No GINGER Score: 0 ED Medical Decision Making - Lab Data Result diagrams: 02/22/17 20:07 02/22/17 20:07 Laboratory Results - last 24 hr 02/22/17 02/22/17 02/22/17 20:07 20:07 20:07 WBC 6.0 RBC 3.44 L Hgb 10.5 Hct 32.6 MCV 95 MCH 31 MCHC 32 RDW 17.8 H Plt Count 282 Lymph % (Auto) 34.2 [place] % (Auto) 7.0 Eos % (Auto) 2.4 Baso % (Auto) 0.5 Lymph # 2.1 [place] # 0.4 Eos # 0.1 Baso # 0.0 Seg Neutrophils % 55.9 Seg Neutrophils # 3.4 Percent Retic 2.57 PT 13.1 INR 1.00 APTT 33.8 Sodium 146 H Potassium 4.0 Chloride 106.8 Carbon Dioxide 26 Anion Gap 17 BUN 11 Creatinine 0.9 Estimated GFR > 60 BUN/Creatinine Ratio 12.22 Glucose 85 Calcium 8.9 Troponin T < 0.010 HCG, Qual 02/22/17 02/22/17 02/23/17 20:07 23:50 01:25 WBC RBC Hgb Hct MCV MCH MCHC RDW Plt Count Lymph % (Auto) [place] % (Auto) Eos % (Auto) Baso % (Auto) Lymph # [place] # Eos # Baso # Seg Neutrophils % Seg Neutrophils # Percent Retic PT INR APTT Sodium Potassium Chloride Carbon Dioxide Anion Gap BUN Creatinine Estimated GFR BUN/Creatinine Ratio Glucose Calcium Troponin T < 0.010 < 0.010 HCG, Qual Negative - EKG Data -: EKG Interpreted by Me EKG shows normal: sinus rhythm, axis, intervals, QRS complexes, ST-T waves - EKG Data 02/23/17 03:34 Rate of 91 - Medical Decision Making Patient is a 41-year-old female here with chest pain nausea vomiting. She appears well her workup is unremarkable. EKG is negative. Do not suspect infection. Plan to hydrate and use antiemetics and treat pain with IV narcotics. Anticipate discharge. Patient appears well and labs are unremarkable. Plan to discharge the patient have with oral pain medication. Stable and appears well. Portions of this chart were dictated with dictation software. There may be dictation errors contained within this note. Critical care attestation.: If time is entered above; I have spent that time in minutes in the direct care of this critically ill patient, excluding procedure time. ED Disposition Clinical Impression: Sickle cell anemia with pain, Dehydration Disposition: DC- TO HOME OR SELFCARE Is pt being admited?: No Does the pt Need Aspirin: No Condition: Stable Instructions: Dehydration (ED) Prescriptions: Oxycodone HCl/Acetaminophen [Percocet 10/325 mg] 1 each PO Q6HR PRN #12 tablet PRN Reason: Pain Referrals: PRIMARY CARE,MD [Primary Care Provider] - 3-5 Days
[2017-02-23] MEDS ORDERED: BENADRYL PO ONE ×2 (05:55→06:06)
[2017-02-23] MEDS ORDERED: DILAUDID IM ONE (06:06)
[2017-02-23] MEDS ORDERED: ZOFRAN IM ONE (06:06)
[2017-02-23 06:53] VITALS: BP 140/76
--- NOTE | 2017-02-23 07:34 | XRay Report ---
Chest 2 views: Compared to 11/29/16. History: Chest pain. Findings: Normal cardiomediastinal silhouette. Trachea is midline. No consolidation, pneumothorax or pleural effusion. Impression: No acute cardiopulmonary findings.
== END 2017-02-23 06:15 | disposition home or self-care (01) ==
LOC: ED 18:57
DX: D57.00 Hb-SS disease with crisis, unspecified (principal); E86.0 Dehydration; I25.2 Old myocardial infarction; R56.9 Unspecified convulsions; F32.9 Major depressive disorder, single episode, unspecified; I26.99 Other pulmonary embolism without acute cor pulmonale; Z79.01 Long term (current) use of anticoagulants; Z88.6 Allergy status to analgesic agent; Z88.8 Allergy status to other drugs, medicaments and biological substances
CPT/HCPCS: 36415; 71020; 80048; 84484; 84703; 85025; 85045; 85610; 85730; 93005; 93010; 96372; 99285; J1170; J2405; J7030

== ENCOUNTER 2017-05-03 05:51 | Emergency (ER) | payer OTHER ==
[2017-05-03] MEDS ORDERED: D5NS 0.2% 1,000 ML IV SCH (07:00)
[2017-05-03 07:04] LABS: Basophils % (Auto) 0.3 % (0.0-1.8); Hematocrit 34.6 % (30.3-42.9); Hemoglobin 11.7 gm/dl (10.1-14.3); Mean Corpuscular HGB Conc 34 % (30-34); Mean Corpuscular Hemoglobin 31 pg (28-32); Mean Corpuscular Volume 91 fl (79-97); Platelet Count 206 K/mm3 (140-440); Red Blood Count 3.79 M/mm3 (3.65-5.03); Red Cell Distribution Width 15.2 % (13.2-15.2); Reticulocyte % 1.06 % (0.78-2.58); White Blood Count 3.6 K/mm3 (4.5-11.0)
[2017-05-03 07:18] LABS: Anion Gap 13 mmol/L; BUN/Creatinine Ratio 8.57; Blood Urea Nitrogen 6 mg/dL (7-17); Carbon Dioxide 30 mmol/L (22-30); Chloride 108.4 mmol/L (98-107); Glucose 98 mg/dL (65-100); Potassium 3.4 mmol/L (3.6-5.0); Sodium 148 mmol/L (137-145)
--- NOTE | 2017-05-03 10:16 | Emergency Department Report ---
ED Chest Pain HPI - General Chief Complaint: Chest Pain Stated Complaint: CHEST PAIN/SICKLE CELL Time Seen by Provider: 05/03/17 10:11 Source: family Mode of arrival: Ambulatory Limitations: No Limitations - Related Data Home Medications Medication Instructions Recorded Confirmed Last Taken Capecitabine [Xeloda] 500 mg PO BID 11/23/15 09/23/16 Unknown Previous Rx's Medication Instructions Recorded Last Taken Type Ferrous Sulfate [Feosol 325 MG tab] 325 mg PO QDAY #30 tablet 01/18/14 08/25/15 Rx Folic Acid [Folvite] 1 mg PO QDAY #30 tablet 06/19/14 08/25/15 Rx Hydroxyurea [Droxia] 300 mg PO QDAY #30 capsule 06/19/14 08/25/15 Rx Warfarin [Coumadin] 10 mg PO QDAY #30 tablet 06/11/15 08/25/15 Rx levETIRAcetam [Keppra TAB] 1,000 mg PO QDAY 30 Days 06/11/15 08/25/15 Rx Ondansetron [Zofran ODT TAB] 8 mg PO Q8HR PRN #20 tab.rapdis 07/14/15 08/25/15 Rx Enoxaparin [Lovenox] 100 mg SQ Q12HR #14 syringe 11/24/15 Unknown Rx Ondansetron [Zofran Odt] 4 mg PO Q6H PRN #7 tab.rapdis 09/23/16 Unknown Rx oxyCODONE /ACETAMINOPHEN [Percocet 1 tab PO Q6HR PRN #10 tablet 09/23/16 Unknown Rx 5/325] Nitrofurantoin [place]/M-Cryst 100 mg PO Q12HR #10 capsule 11/29/16 Unknown Rx [Macrobid CAP] Oxycodone HCl [Oxycodone HCl ER] 30 mg PO BID #14 tab.er.12h 11/29/16 Unknown Rx Promethazine [Phenergan] 25 mg [place] Q6HR PRN #20 supp.rect 11/29/16 Unknown Rx Oxycodone HCl/Acetaminophen 1 each PO Q6HR PRN #12 tablet 02/23/17 Unknown Rx [Percocet 10/325 mg] Allergies Allergy/AdvReac Type Severity Reaction Status Date / Time aspirin Allergy Rash Verified 03/07/15 09:01 ketorolac tromethamine Allergy Rash Verified 03/07/15 09:01 [From Toradol] morphine Allergy Unknown Verified 03/07/15 09:01 prochlorperazine edisylate Allergy Rash Verified 03/07/15 09:01 [From Compazine] metoclopramide HCl AdvReac AGITATION Verified 03/07/15 09:01 [From Reglan] ED Review of Systems ROS: Stated complaint: CHEST PAIN/SICKLE CELL Other details as noted in HPI ED Past Medical Hx - Past Medical History Previous Medical History?: Yes Hx Heart Attack/AMI: Yes (2013) Hx Congestive Heart Failure: No Hx Diabetes: No Hx Deep Vein Thrombosis: No Hx Pulmonary Embolism: Yes (currently on Coumadin) Hx Sickle Cell Disease: Yes Hx Seizures: Yes Hx Psychiatric Treatment: Yes (1 prior admission-DEPRESSION) Hx Asthma: No Hx COPD: No Hx HIV: No Additional medical history: Tachycardia. OVARIAN CYST. Anticoagulated due to PE associated with port. - Surgical History Past Surgical History?: Yes Hx Pacemaker: No Hx Internal Defibrillator: No Hx Cholecystectomy: Yes Hx Breast Surgery: Yes (reduction) Additional Surgical History: Tubal LIGATION. ovarian cyst REMOVED. Left ovary removed, Took chemo for ovarian cancer via port placed in chest, two years back. Port placement and removal. PICC placement X 2. Stents in heart , last year, Cholecystectomy 4 years back, Breast reduction, 2 years back - Social History Smoking Status: Never Smoker Substance Use Type: Marijuana - Medications Home Medications: Home Medications Medication Instructions Recorded Confirmed Last Taken Type Ferrous Sulfate [Feosol 325 MG tab] 325 mg PO QDAY #30 tablet 01/18/14 09/23/16 08/25/15 Rx Folic Acid [Folvite] 1 mg PO QDAY #30 tablet 06/19/14 09/23/16 08/25/15 Rx Hydroxyurea [Droxia] 300 mg PO QDAY #30 capsule 06/19/14 09/23/16 08/25/15 Rx Warfarin [Coumadin] 10 mg PO QDAY #30 tablet 06/11/15 09/23/16 08/25/15 Rx levETIRAcetam [Keppra TAB] 1,000 mg PO QDAY 30 Days 06/11/15 09/23/16 08/25/15 Rx Ondansetron [Zofran ODT TAB] 8 mg PO Q8HR PRN #20 tab.rapdis 07/14/15 09/23/16 08/25/15 Rx Capecitabine [Xeloda] 500 mg PO BID 11/23/15 09/23/16 Unknown History Enoxaparin [Lovenox] 100 mg SQ Q12HR #14 syringe 11/24/15 09/23/16 Unknown Rx Ondansetron [Zofran Odt] 4 mg PO Q6H PRN #7 tab.rapdis 09/23/16 Unknown Rx oxyCODONE /ACETAMINOPHEN [Percocet 1 tab PO Q6HR PRN #10 tablet 09/23/16 Unknown Rx 5/325] Nitrofurantoin [place]/M-Cryst 100 mg PO Q12HR #10 capsule 11/29/16 Unknown Rx [Macrobid CAP] Oxycodone HCl [Oxycodone HCl ER] 30 mg PO BID #14 tab.er.12h 11/29/16 Unknown Rx Promethazine [Phenergan] 25 mg [place] Q6HR PRN #20 supp.rect 11/29/16 Unknown Rx Oxycodone HCl/Acetaminophen 1 each PO Q6HR PRN #12 tablet 02/23/17 Unknown Rx [Percocet 10/325 mg] ED Physical Exam - General Limitations: No Limitations ED Course Vital Signs 05/03/17 06:04 Temperature 99.1 F Pulse Rate 68 Respiratory 18 Rate Blood Pressure 142/71 O2 Sat by Pulse 98 Oximetry GINGER score - Ginger Score Age > 65: (0) No Aspirin use within the Past 7 Days: (0) No 3 or more CAD Risk Factors: (0) No 2 or more Angina events in past 24 hrs: (0) No Known CAD with more than 50% Stenosis: (0) No Elevated Cardiac Markers: (0) No ST Deviation Greater than 0.5mm: (0) No GINGER Score: 0 ED Medical Decision Making - Lab Data Result diagrams: 05/03/17 06:34 05/03/17 06:34 Laboratory Results - last 24 hr 05/03/17 05/03/17 05/03/17 06:34 06:34 09:22 WBC 3.6 L RBC 3.79 Hgb 11.7 Hct 34.6 MCV 91 MCH 31 MCHC 34 RDW 15.2 Plt Count 206 Lymph % (Auto) 34.4 [place] % (Auto) 8.1 H Eos % (Auto) 3.0 Baso % (Auto) 0.3 Lymph # 1.2 [place] # 0.3 Eos # 0.1 Baso # 0.0 Seg Neutrophils % 54.2 Seg Neutrophils # 2.0 Percent Retic 1.06 Sodium 148 H Potassium 3.4 L Chloride 108.4 H Carbon Dioxide 30 Anion Gap 13 BUN 6 L Creatinine 0.7 Estimated GFR > 60 BUN/Creatinine Ratio 8.57 Glucose 98 Calcium 9.0 Troponin T < 0.010 < 0.010 - EKG Data -: EKG Interpreted by Me EKG shows normal: sinus rhythm, axis, intervals, QRS complexes, ST-T waves Rate: normal - EKG Data Interpretation: normal EKG Critical care attestation.: If time is entered above; I have spent that time in minutes in the direct care of this critically ill patient, excluding procedure time. ED Disposition Condition: Stable Referrals: PRIMARY CARE, [Primary Care Provider] - 3-5 Days
[2017-05-03 11:24] LABS: INR 1.07 (0.87-1.13)
[2017-05-03 11:25] LABS: Partial Thromboplastin Time 35.1 Sec. (24.2-36.6)
[2017-05-03] MEDS ORDERED: ZOFRAN ODT PO ONE ×2 (11:47→17:07)
[2017-05-03] MEDS ORDERED: NORCO 5/325 PO ONE ×2 (11:47→15:49)
[2017-05-03] MEDS ORDERED: K-DUR PO ONE (11:59)
[2017-05-03] MEDS ORDERED: D5W/0.45% NACL/KCL 20 MEQ 20 MEQ/1,000 ML BAG IV SCH (12:00)
[2017-05-03] MEDS ORDERED: LOVENOX SUB-Q SCH (12:00)
--- NOTE | 2017-05-03 12:26 | Emergency Department Report ---
ED General Adult HPI - General Chief complaint: Chest Pain Stated complaint: CHEST PAIN/SICKLE CELL Time Seen by Provider: 05/03/17 10:11 Source: family Mode of arrival: Ambulatory Limitations: No Limitations - History of Present Illness Initial comments: Patient's chief complaint is not chest pain. However she does state she had chest pain last night that was similar to many prior episodes. She states that the chest pain was in the substernal area and under the left breast and that one Time she could feel it in her shoulder. It did not radiate down her left arm. She reported a very vague dyspnea which did not persist. There was no cough. There is no shortness of breath now. There is no chest pain now. Chest pain was non-pleuritic at that time. Patient states that she is primarily here because she has had vomiting and diarrhea for 5 days. She did not seek medical attention for this. She states that she vomited last while she was here. She refers 7-8 bowel movements a day and states that she has seen some slight streaking of blood. She has not taken her Coumadin she states for 5 days. She states she is unable to keep food down. She does not complain of symptoms that are consistent with a sickle cell pain crisis. Patient does state that she is on chronic pain medication she states she goes to a "oncologist" on [facility] for management of her chronic pain. 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 (However, her hemoglobin and reticulocyte count or not currently diagnostic of this.) She states that she had a pulmonary embolism which was secondary to a thrombosed port vessel in her right chest 18 months ago. She does not know long how long it was recommended that she continue anticoagulation. She states that she received treatment for this at [facility]. -: Gradual, days(s) Location: chest Severity scale (0 -10): 4 Quality: aching Consistency: now resolved Improves with: none Worsens with: cold therapy Associated Symptoms: nausea/vomiting (vomiting and diarrhea as above) Treatments Prior to Arrival: none - Related Data Home Medications Medication Instructions Recorded Confirmed Last Taken Capecitabine [Xeloda] 500 mg PO BID 11/23/15 09/23/16 Unknown Previous Rx's Medication Instructions Recorded Last Taken Type Ferrous Sulfate [Feosol 325 MG tab] 325 mg PO QDAY #30 tablet 01/18/14 08/25/15 Rx Folic Acid [Folvite] 1 mg PO QDAY #30 tablet 06/19/14 08/25/15 Rx Hydroxyurea [Droxia] 300 mg PO QDAY #30 capsule 06/19/14 08/25/15 Rx Warfarin [Coumadin] 10 mg PO QDAY #30 tablet 06/11/15 08/25/15 Rx levETIRAcetam [Keppra TAB] 1,000 mg PO QDAY 30 Days 06/11/15 08/25/15 Rx Ondansetron [Zofran ODT TAB] 8 mg PO Q8HR PRN #20 tab.rapdis 07/14/15 08/25/15 Rx Enoxaparin [Lovenox] 100 mg SQ Q12HR #14 syringe 11/24/15 Unknown Rx Ondansetron [Zofran Odt] 4 mg PO Q6H PRN #7 tab.rapdis 09/23/16 Unknown Rx oxyCODONE /ACETAMINOPHEN [Percocet 1 tab PO Q6HR PRN #10 tablet 09/23/16 Unknown Rx 5/325] Nitrofurantoin Moody/M-Cryst 100 mg PO Q12HR #10 capsule 11/29/16 Unknown Rx [Macrobid CAP] Oxycodone HCl [Oxycodone HCl ER] 30 mg PO BID #14 tab.er.12h 11/29/16 Unknown Rx Promethazine [Phenergan] 25 mg TX Q6HR PRN #20 supp.rect 11/29/16 Unknown Rx Oxycodone HCl/Acetaminophen 1 each PO Q6HR PRN #12 tablet 02/23/17 Unknown Rx [Percocet 10/325 mg] Allergies Allergy/AdvReac Type Severity Reaction Status Date / Time aspirin Allergy Rash Verified 03/07/15 09:01 ketorolac tromethamine Allergy Rash Verified 03/07/15 09:01 [From Toradol] morphine Allergy Unknown Verified 03/07/15 09:01 prochlorperazine edisylate Allergy Rash Verified 03/07/15 09:01 [From Compazine] metoclopramide HCl AdvReac AGITATION Verified 03/07/15 09:01 [From Reglan] ED Review of Systems ROS: Stated complaint: CHEST PAIN/SICKLE CELL Other details as noted in HPI Constitutional: denies: chills, fever Eyes: denies: eye pain, eye discharge, vision change ENT: denies: ear pain, throat pain Respiratory: denies: cough, shortness of breath, wheezing Cardiovascular: chest pain. denies: palpitations Endocrine: no symptoms reported Gastrointestinal: nausea, diarrhea. denies: abdominal pain Genitourinary: denies: urgency, dysuria, discharge Musculoskeletal: denies: back pain, joint swelling, arthralgia Skin: denies: rash, lesions Neurological: denies: headache, weakness, paresthesias Psychiatric: denies: anxiety, depression Hematological/Lymphatic: denies: easy bleeding, easy bruising ED Past Medical Hx - Past Medical History Previous Medical History?: Yes Hx Heart Attack/AMI: Yes (2013) Hx Congestive Heart Failure: No Hx Diabetes: No Hx Deep Vein Thrombosis: No Hx Pulmonary Embolism: Yes (currently on Coumadin) Hx Sickle Cell Disease: Yes Hx Seizures: Yes Hx Psychiatric Treatment: Yes (1 prior admission-DEPRESSION) Hx Asthma: No Hx COPD: No Hx HIV: No Additional medical history: Tachycardia. OVARIAN CYST. Anticoagulated due to PE associated with port. - Surgical History Past Surgical History?: Yes Hx Pacemaker: No Hx Internal Defibrillator: No Hx Cholecystectomy: Yes Hx Breast Surgery: Yes (reduction) Additional Surgical History: Tubal LIGATION. ovarian cyst REMOVED. Left ovary removed, Took chemo for ovarian cancer via port placed in chest, two years back. Port placement and removal. PICC placement X 2. Stents in heart , last year, Cholecystectomy 4 years back, Breast reduction, 2 years back - Social History Smoking Status: Never Smoker Substance Use Type: Marijuana - Medications Home Medications: Home Medications Medication Instructions Recorded Confirmed Last Taken Type Ferrous Sulfate [Feosol 325 MG tab] 325 mg PO QDAY #30 tablet 01/18/14 09/23/16 08/25/15 Rx Folic Acid [Folvite] 1 mg PO QDAY #30 tablet 06/19/14 09/23/16 08/25/15 Rx Hydroxyurea [Droxia] 300 mg PO QDAY #30 capsule 06/19/14 09/23/16 08/25/15 Rx Warfarin [Coumadin] 10 mg PO QDAY #30 tablet 06/11/15 09/23/16 08/25/15 Rx levETIRAcetam [Keppra TAB] 1,000 mg PO QDAY 30 Days 06/11/15 09/23/16 08/25/15 Rx Ondansetron [Zofran ODT TAB] 8 mg PO Q8HR PRN #20 tab.rapdis 07/14/15 09/23/16 08/25/15 Rx Capecitabine [Xeloda] 500 mg PO BID 11/23/15 09/23/16 Unknown History Enoxaparin [Lovenox] 100 mg SQ Q12HR #14 syringe 11/24/15 09/23/16 Unknown Rx Ondansetron [Zofran Odt] 4 mg PO Q6H PRN #7 tab.rapdis 09/23/16 Unknown Rx oxyCODONE /ACETAMINOPHEN [Percocet 1 tab PO Q6HR PRN #10 tablet 09/23/16 Unknown Rx 5/325] Nitrofurantoin Moody/M-Cryst 100 mg PO Q12HR #10 capsule 11/29/16 Unknown Rx [Macrobid CAP] Oxycodone HCl [Oxycodone HCl ER] 30 mg PO BID #14 tab.er.12h 11/29/16 Unknown Rx Promethazine [Phenergan] 25 mg TX Q6HR PRN #20 supp.rect 11/29/16 Unknown Rx Oxycodone HCl/Acetaminophen 1 each PO Q6HR PRN #12 tablet 02/23/17 Unknown Rx [Percocet 10/325 mg] ED Physical Exam - General Limitations: No Limitations General appearance: alert, in no apparent distress - Head Head exam: Present: atraumatic, normocephalic - Eye Eye exam: Present: normal appearance, PERRL, EOMI. Absent: scleral icterus - ENT ENT exam: Present: normal exam, mucous membranes moist - Neck Neck exam: Present: normal inspection. Absent: tenderness, meningismus - Respiratory Respiratory exam: Present: normal lung sounds bilaterally. Absent: respiratory distress - Cardiovascular Cardiovascular Exam: Present: regular rate, normal rhythm. Absent: systolic murmur, diastolic murmur, rubs, gallop - GI/Abdominal GI/Abdominal exam: Present: soft, normal bowel sounds. Absent: distended, tenderness, guarding, rebound, rigid - Extremities Exam Extremities exam: Present: normal inspection - Back Exam Back exam: Present: normal inspection - Neurological Exam Neurological exam: Present: alert, oriented X3, CN II-XII intact. Absent: motor sensory deficit - Psychiatric Psychiatric exam: Present: normal affect, normal mood - Skin Skin exam: Present: warm, dry, intact, normal color. Absent: rash ED Course Vital Signs 05/03/17 05/03/17 06:04 10:15 Temperature 99.1 F Pulse Rate 68 61 Respiratory 18 13 Rate Blood Pressure 142/71 137/82 O2 Sat by Pulse 98 97 Oximetry - Reevaluation(s) Reevaluation #1: The patient's hemoglobin is stable. Her d-dimer and reticulocyte count were normal. She is indeed having significant diarrhea. Thus, she will be admitted for re-anticoagulation, monitoring of her slight hematochezia correction of her electrolyte disturbance which is consistent with hypokalemia and contraction alkalosis and any other workup as per Dr. Alejandro/hospitalist staff. The patient does not have any referral access that we can find. PICC line consult has been called. Excess is not needed on an emergency basis at this time. Additionally, the patient tells me she has had several problems with previous central lines. 05/03/17 12:27 ED Medical Decision Making - Lab Data Result diagrams: 05/03/17 06:34 05/03/17 06:34 Laboratory Results - last 24 hr 05/03/17 05/03/17 05/03/17 06:34 06:34 09:22 WBC 3.6 L RBC 3.79 Hgb 11.7 Hct 34.6 MCV 91 MCH 31 MCHC 34 RDW 15.2 Plt Count 206 Lymph % (Auto) 34.4 Moody % (Auto) 8.1 H Eos % (Auto) 3.0 Baso % (Auto) 0.3 Lymph # 1.2 Moody # 0.3 Eos # 0.1 Baso # 0.0 Seg Neutrophils % 54.2 Seg Neutrophils # 2.0 Percent Retic 1.06 PT INR APTT D-Dimer Sodium 148 H Potassium 3.4 L Chloride 108.4 H Carbon Dioxide 30 Anion Gap 13 BUN 6 L Creatinine 0.7 Estimated GFR > 60 BUN/Creatinine Ratio 8.57 Glucose 98 Calcium 9.0 Troponin T < 0.010 < 0.010 NT-Pro-B Natriuret Pep 05/03/17 05/03/17 10:51 10:51 WBC RBC Hgb Hct MCV MCH MCHC RDW Plt Count Lymph % (Auto) Moody % (Auto) Eos % (Auto) Baso % (Auto) Lymph # Moody # Eos # Baso # Seg Neutrophils % Seg Neutrophils # Percent Retic PT 13.8 INR 1.07 APTT 35.1 D-Dimer 177.26 Sodium Potassium Chloride Carbon Dioxide Anion Gap BUN Creatinine Estimated GFR BUN/Creatinine Ratio Glucose Calcium Troponin T NT-Pro-B Natriuret Pep 41.41 - EKG Data -: EKG Interpreted by Me EKG shows normal: sinus rhythm, axis, intervals, QRS complexes, ST-T waves Rate: normal - EKG Data Interpretation: normal EKG Critical care attestation.: If time is entered above; I have spent that time in minutes in the direct care of this critically ill patient, excluding procedure time. ED Disposition Clinical Impression: Chest pain at rest, Hypokalemia, Volume depletion, Metabolic alkalosis, Hypokalemia, Hypernatremia Disposition: OP ADMIT IP TO THIS HOSP Is pt being admited?: Yes Does the pt Need Aspirin: No Condition: Stable Instructions: Chest Pain (ED) Referrals: PRIMARY CAREMD [Primary Care Provider] - 3-5 Days Time of Disposition: 12:31
[2017-05-03] MEDS ORDERED: NACL 0.45% 2,000 ML IV SCH (13:00)
--- NOTE | 2017-05-03 13:44 | Admit Criteria Form ---
Admission Criteria Documentation: GASTROENTERITIS Clinical Indications for Admission to Inpatient Care ( [place]/check or initial the applicable condition/criteria) Admission is indicated for ANY ONE of the following (1)(2)(3)(4)(5)(6): [X]I. Inpatient admission required[A] rather than observation care (Also use Gastroenteritis: Observation Care as appropriate) because of ANY ONE of the following(8)(9): a) Vomiting that is severe or persistent [X] b) Dehydration that is severe or persistent c) Hemodynamic instability that is severe or persistent d) Signs of intestinal obstruction or peritonitis [B] e) Hemolytic uremic syndrome is diagnosed. f) Absent bowel sounds with complete ileus g) Parenteral nutrition regimen that must be implemented on inpatient basis h) Other condition, treatment or monitoring requiring inpatient admission II. Suspected severe infection (e.g, presence of high fever, severe or bloody diarrhea)(7) III. Severe abdominal tenderness IV. Toxic megacolon Extended stay beyond goal length of stay may be needed for(4)(5)(23) a) Persistent vital sign changes, severe electrolyte imbalance, or ongoing fluid losses that require continued hospitalization (29) b) Other diagnosed cause for gastrointestinal symptoms (eg, intestinal obstruction,inflammatory bowel disease) that requires continued hospitalization c) Clostridium difficile infection(16)(17)(26)(27)(28) d) Hemolytic uremic syndrome (24)(25) e) Bacterial dysentery(7) f) Radiation gastroenteritis g) Endoscopy with lesion h) Clinically significant medical comorbidities that require inpatient care ( eg, acute renal failure) i) Older patients (65 years or older) j) Toxic megacolon The original [facility] content created by [employer] has been revised. The portions of the content which have been revised are identified through the use of italic text or in bold, and [facility] has neither reviewed nor approved the modified material. All other unmodified content is copyright [facility]. Please see references footnoted in the original [facility] edition 2016
[2017-05-03 23:58] VITALS: BP 124/76
== END 2017-05-03 19:00 | disposition admitted as inpatient to this hospital (09) ==
LOC: ED 05:51
DX: E87.6 Hypokalemia (principal); E87.3 Alkalosis; E87.0 Hyperosmolality and hypernatremia; R07.9 Chest pain, unspecified
CPT/HCPCS: 36415; 80048; 83880; 84484; 85025; 85045; 85379; 85610; 85730; 87493; 93005; 93010; 96365; 96366; Q0162

== ENCOUNTER 2017-06-05 00:27 | Emergency (ER) | payer SELFPAY ==
[2017-06-05] MEDS ORDERED: D5NS 0.2% 1,000 ML IV SCH (02:00)
[2017-06-05 02:26] LABS: Basophils % (Auto) 0.5 % (0.0-1.8); Eosinophils % (Auto) 1.5 % (0.0-4.3); Hematocrit 34.4 % (30.3-42.9); Hemoglobin 11.7 gm/dl (10.1-14.3); Mean Corpuscular HGB Conc 34 % (30-34); Mean Corpuscular Hemoglobin 31 pg (28-32); Mean Corpuscular Volume 90 fl (79-97); Platelet Count 240 K/mm3 (140-440); Red Blood Count 3.81 M/mm3 (3.65-5.03); Red Cell Distribution Width 17.1 % (13.2-15.2); Reticulocyte % 1.28 % (0.78-2.58); White Blood Count 5.5 K/mm3 (4.5-11.0)
[2017-06-05 10:37] VITALS: BP 129/77
[2017-06-05] MEDS ORDERED: FLEXERIL PO ONE (10:46)
[2017-06-05 12:04] LABS: Bilirubin,Urine NEG (Negative); Blood,Urine SM (Negative); Ketones,Urine NEG (Negative); Leukocyte Esterase,Urine SM (Negative); Mucus,Urine FEW /HPF; Nitrite,Urine NEG (Negative); Urobilinogen,Urine < 2.0 mg/dL (<2.0)
[2017-06-05 12:05] LABS: Alanine Aminotransferase 11 units/L (7-56); Alkaline Phosphatase 69 units/L (35-129); Anion Gap 17 mmol/L; BUN/Creatinine Ratio 10; Blood Urea Nitrogen 7 mg/dL (7-17); Calcium 9.2 mg/dL (8.4-10.2); Carbon Dioxide 25 mmol/L (22-30); Chloride 102.4 mmol/L (98-107); Glucose 77 mg/dL (65-100); Potassium 3.1 mmol/L (3.6-5.0); Sodium 141 mmol/L (137-145); Total Protein 7.9 g/dL (6.3-8.2)
--- NOTE | 2017-06-05 12:17 | Ultrasound Report ---
RIGHT UPPER QUADRANT ULTRASOUND: HISTORY: Right upper quadrant pain. Technique: Transabdominal ultrasound imaging with Doppler interrogation. FINDINGS: The gallbladder has been surgically removed. The CBD measures 4.2 mm. Images of the liver parenchyma, pancreas, right kidney and aorta are within normal limits. No perihepatic ascites. IMPRESSION: Unremarkable right upper quadrant ultrasound.
--- NOTE | 2017-06-05 12:35 | Emergency Department Report ---
HPI - General Chief Complaint: Sickle Cell Crisis Time Seen by Provider: 06/05/17 10:46 ED Past Medical Hx - Past Medical History Hx Heart Attack/AMI: Yes (2013) Hx Congestive Heart Failure: No Hx Diabetes: No Hx Deep Vein Thrombosis: No Hx Pulmonary Embolism: Yes (currently on Coumadin) Hx Sickle Cell Disease: Yes Hx Seizures: Yes Hx Psychiatric Treatment: Yes (1 prior admission-DEPRESSION) Hx Asthma: No Hx COPD: No Hx HIV: No Additional medical history: Tachycardia. OVARIAN CYST. Anticoagulated due to PE associated with port. - Surgical History Hx Pacemaker: No Hx Internal Defibrillator: No Hx Cholecystectomy: Yes Hx Breast Surgery: Yes (reduction) Additional Surgical History: Tubal LIGATION. ovarian cyst REMOVED. Left ovary removed, Took chemo for ovarian cancer via port placed in chest, two years back. Port placement and removal. PICC placement X 2. Stents in heart , last year, Cholecystectomy 4 years back, Breast reduction, 2 years back - Social History Smoking Status: Never Smoker Substance Use Type: Marijuana - Medications Home Medications: Home Medications Medication Instructions Recorded Confirmed Last Taken Type Ferrous Sulfate [Feosol 325 MG tab] 325 mg PO QDAY #30 tablet 01/18/14 05/03/17 05/02/17 Rx Folic Acid [Folvite] 1 mg PO QDAY #30 tablet 06/19/14 05/03/17 05/02/17 Rx Hydroxyurea [Droxia] 300 mg PO QDAY #30 capsule 06/19/14 05/03/17 05/02/17 Rx ALPRAZolam [Xanax TAB] 2 mg PO TID PRN 05/03/17 05/03/17 05/02/17 History Mv-Mins/Folic Acid/Guarana/Caf 1 each PO DAILY 05/03/17 05/03/17 05/02/17 History [One Daily Tablet] Ondansetron [Zofran Odt] 4 mg PO TID PRN #15 tab.rapdis 05/03/17 Unknown Rx levETIRAcetam [Keppra TAB] 1,000 mg PO BID 05/03/17 05/03/17 05/02/17 History traZODone [Desyrel] 100 mg PO QHS 05/03/17 05/03/17 05/02/17 History Dicyclomine [Bentyl] 10 mg PO QID #30 capsule 06/05/17 Unknown Rx ED Review of Systems ROS: Stated complaint: SICKLE CELL PAIN Other details as noted in HPI Physical Exam - Physical Exam Vital Signs: Vital Signs 06/05/17 06/05/17 06/05/17 01:45 01:49 10:33 Temperature 98.5 F 98.5 F Pulse Rate 68 79 Respiratory 18 18 Rate Blood Pressure 124/76 124/76 129/77 Blood Pressure [Left] O2 Sat by Pulse 97 98 Oximetry 06/05/17 06/05/17 06/05/17 10:36 10:45 11:01 Temperature 98.9 F Pulse Rate 71 Respiratory 16 Rate Blood Pressure 129/77 129/77 Blood Pressure 129/77 [Left] O2 Sat by Pulse 98 96 100 Oximetry 06/05/17 06/05/17 06/05/17 11:15 11:43 11:45 Temperature Pulse Rate Respiratory Rate Blood Pressure 129/77 129/77 129/77 Blood Pressure [Left] O2 Sat by Pulse 99 97 99 Oximetry Physical Exam: Physical Exam: - General Limitations: No Limitations General appearance: alert, in no apparent distress, obese - Head Head exam: Present: atraumatic, normocephalic - Eye Eye exam: Present: normal appearance - ENT ENT exam: Present: mucous membranes moist - Neck Neck exam: Present: normal inspection - Respiratory Respiratory exam: Present: normal lung sounds bilaterally. Absent: respiratory distress - Cardiovascular Cardiovascular Exam: Present: normal rhythm, tachycardia. Absent: systolic murmur, diastolic murmur, rubs, gallop - GI/Abdominal GI/Abdominal exam: Present: soft, normal bowel sounds - Extremities Exam Extremities exam: Present: normal inspection - Back Exam Back exam: Present: normal inspection - Neurological Exam Neurological exam: Present: alert, oriented X3 - Psychiatric Psychiatric exam: normal affect and mood - Skin Skin exam: Present: warm, dry, intact, normal color. Absent: rash ED Course Vital Signs 06/05/17 06/05/17 06/05/17 01:45 01:49 10:33 Temperature 98.5 F 98.5 F Pulse Rate 68 79 Respiratory 18 18 Rate Blood Pressure 124/76 124/76 129/77 Blood Pressure [Left] O2 Sat by Pulse 97 98 Oximetry 06/05/17 06/05/17 06/05/17 10:36 10:45 11:01 Temperature 98.9 F Pulse Rate 71 Respiratory 16 Rate Blood Pressure 129/77 129/77 Blood Pressure 129/77 [Left] O2 Sat by Pulse 98 96 100 Oximetry 06/05/17 06/05/17 06/05/17 11:15 11:43 11:45 Temperature Pulse Rate Respiratory Rate Blood Pressure 129/77 129/77 129/77 Blood Pressure [Left] O2 Sat by Pulse 99 97 99 Oximetry ED Medical Decision Making - Lab Data Result diagrams: 06/05/17 01:56 06/05/17 11:28 Critical care attestation.: If time is entered above; I have spent that time in minutes in the direct care of this critically ill patient, excluding procedure time. ED Disposition Clinical Impression: Right upper quadrant abdominal pain Sickle cell anemia Qualifiers: Sickle-cell associated disorders: without crisis Qualified Code(s): D57.1 - Sickle-cell disease without crisis Disposition: DC-01 TO HOME OR SELFCARE Is pt being admited?: No Does the pt Need Aspirin: No Condition: Stable Prescriptions: Dicyclomine [Bentyl] 10 mg PO QID #30 capsule Referrals: PRIMARY CARE, [Primary Care Provider] - 3-5 Days
== END 2017-06-05 13:11 | disposition home or self-care (01) ==
LOC: ED 00:27
DX: D57.1 Sickle-cell disease without crisis (principal); R10.11 Right upper quadrant pain; I25.2 Old myocardial infarction; R56.9 Unspecified convulsions; Z90.49 Acquired absence of other specified parts of digestive tract; Z98.890 Other specified postprocedural states; Z88.0 Allergy status to penicillin
CPT/HCPCS: 36415; 76705; 80053; 81001; 81025; 85025; 85045